=== PATIENT | male | born 1970 | race African-American/Black ===

== ENCOUNTER 2018-10-17 14:50 | Emergency (ER) | payer SELFPAY ==
[~2018-10-17] VITALS: Ht 167.6 cm; Wt 122.5 kg
[~2018-10-17 14:50] MED LIST: ALBU8.5H6 IH; AMOX500T PO
[2018-10-17 15:03] VITALS: BP 171/97
--- NOTE | 2018-10-17 15:10 | PHYS DOC ---
Past Medical History Past Medical History: Asthma, Kidney Infection Past Surgical History: Other Additional Past Surgical Histo: right rotator cuff repair Alcohol Use: None Drug Use: None Adult General Chief Complaint Chief Complaint: COUGH HPI HPI Patient is a 48 year old male presents to the ED complaining of cough �2 months. States it has been worsening over the last week. Patient has a history of asthma. States he smokes. Patient uses an inhaler in the mornings and an inhaler at nighttime. States he does not have access to a nebulizer. Associated symptoms include sore throat and congestion. Denies chest pain, nausea/vomiting, lower leg swelling, abdominal pain, fever, headache, dizziness or back pain. Review of Systems Review of Systems Constitutional: Denies fever or chills [] Eyes: Denies change in visual acuity, redness, or eye pain [] HENT: Complains of congestion. Denies sore throat [] Respiratory: Complains of cough and shortness of breath [] Cardiovascular: No additional information not addressed in HPI [] GI: Denies abdominal pain, nausea, vomiting, bloody stools or diarrhea [] : Denies dysuria or hematuria [] Musculoskeletal: Denies back pain or joint pain [] Integument: Denies rash or skin lesions [] Neurologic: Denies headache, focal weakness or sensory changes [] All other systems were reviewed and found to be within normal limits, except as documented in this note. Current Medications Current Medications Current Medications Medications (Trade) Dose Ordered Sig/Celeste Start Time Stop Time Status Last Admin Dose Admin Albuterol/ Ipratropium (Duoneb) 3 ml 1X ONCE 10/17/18 16:00 10/17/18 16:01 DC 10/17/18 16:14 3 ML Methylprednisolone Sodium Succinate (SOLU-Medrol 125MG VIAL) 125 mg 1X ONCE 10/17/18 15:15 10/17/18 15:16 DC 10/17/18 15:39 125 MG Allergies Allergies Allergies Coded Allergies Type Severity Reaction Last Updated Verified No Known Drug Allergies 02/21/13 No Physical Exam Physical Exam Constitutional: Well developed, well nourished, no acute distress, non-toxic appearance. [] HENT: Normocephalic, atraumatic, bilateral external ears normal, oropharynx moist, no oral exudates, nose normal. [] Eyes: PERRLA, EOMI, conjunctiva normal, no discharge. [] Neck: Normal range of motion, no tenderness, supple, no stridor. [] Cardiovascular:Heart rate regular rhythm, no murmur [] Lungs & Thorax: Mild wheezing bilaterally. [] Abdomen: Bowel sounds normal, soft, no tenderness, no masses, no pulsatile masses. [] Skin: Warm, dry, no erythema, no rash. [] Back: No tenderness, no CVA tenderness. [] Extremities: No tenderness, no cyanosis, no clubbing, ROM intact, no edema. [] Neurologic: Alert and oriented X 3, normal motor function, normal sensory function, no focal deficits noted. [] Psychologic: Affect normal, judgement normal, mood normal. [] Current Patient Data Vital Signs Vital Signs Date Time Temp Pulse Resp B/P (MAP) Pulse Ox O2 Delivery O2 Flow Rate FiO2 10/17/18 16:14 Room Air 10/17/18 15:21 97 10/17/18 15:03 98.2 82 16 171/97 (121) 98.2 EKG EKG [] Radiology/Procedures Radiology/Procedures []PROCEDURE: CHEST AP ONLY Chest radiograph 10/17/2018 3:08 PM INDICATION: Pneumonia, chronic White cough COMPARISON: None available TECHNIQUE: Frontal view of the chest is provided. FINDINGS: The cardiomediastinal silhouette is within normal limits. There are no pleural effusions. There is no pulmonary vascular congestion. There is no pneumothorax. The lungs are clear. Minimal subsegmental atelectasis at the right lung base. Bronchial wall thickening may reflect bronchitis. No significant osseous abnormality is identified. IMPRESSION: Bronchial wall thickening suggestive of bronchitis. There is suggestion of subsegmental atelectasis at the right lung base. Course & Med Decision Making Course & Med Decision Making Pertinent Labs and Imaging studies reviewed. (See chart for details) []Discussed imaging findings with patient. Patient improved after breathing treatments in the ED. States he is feeling much better. Oxygen saturation is 98% on room air. Patient is not tachycardic or tachypneic. We'll treat with prednisone and proair inhaler outpatient. Discussed symptomatic treatment follow-up with PCP this week. Provided contact information/education. Discussed reasons to return to the ED. Patient understands and agrees with plan. [employer] Disclaimer Dragon Disclaimer This electronic medical record was generated, in whole or in part, using a voice recognition dictation system. Departure Departure Impression: Primary Impression: Acute bronchitis Disposition: 01 HOME, SELF-CARE Condition: IMPROVED Referrals: ENEIDA MAGALLANES (PCP) Patient Instructions: Acute Bronchitis Scripts Albuterol Sulfate (Proair Hfa) 8.5 Gm Hfa.aer.ad 1 PUFF INH PRN Q6HRS PRN for SHORTNESS OF BREATH, #1 INHALER Prov: EDSON SULTANA 10/17/18 Prednisone (PREDNISONE) 50 Mg Tablet 1 TAB PO DAILY for 5 Days, #5 TAB Prov: EDSON SULTANA 10/17/18 Azithromycin (AZITHROMYCIN TABLET) 250 Mg Tablet 1 PKG PO UD, #6 TAB Prov: EDSON SULTANA 10/17/18 EDSON SULTANA Oct 17, 2018 15:10
[2018-10-17] MEDS ORDERED: methylPREDNISolone SOD SUCC PF 125 MG/2 ML VIAL. IM ONE (15:15)
[2018-10-17] MEDS ORDERED: IPRATRPIUM/ALBUTEROL 0.5/2.5MG 3 ML NEBU. NEB ONE ×2 (15:15→16:00)
--- NOTE | 2018-10-17 15:27 | RAD ---
Chest radiograph 10/17/2018 3:08 PM INDICATION: Pneumonia, chronic White cough COMPARISON: None available TECHNIQUE: Frontal view of the chest is provided. FINDINGS: The cardiomediastinal silhouette is within normal limits. There are no pleural effusions. There is no pulmonary vascular congestion. There is no pneumothorax. The lungs are clear. Minimal subsegmental atelectasis at the right lung base. Bronchial wall thickening may reflect bronchitis. No significant osseous abnormality is identified. IMPRESSION: Bronchial wall thickening suggestive of bronchitis. There is suggestion of subsegmental atelectasis at the right lung base. Electronically signed by: Miesha Medley MD (10/17/2018 3:24 PM) [id number]
[2018-10-17] MEDS ORDERED: AZIT250T6 PO (16:19)
[2018-10-17] MEDS ORDERED: PRED50TA PO (16:19)
[2018-10-17] MEDS ORDERED: ALBU2.5V8 INH (16:19)
== END 2018-10-17 16:26 | disposition home or self-care (01) ==
LOC: ER 14:50
DX: J20.9 Acute bronchitis, unspecified (principal); J45.909 Unspecified asthma, uncomplicated; F17.200 Nicotine dependence, unspecified, uncomplicated
CPT/HCPCS: 71045; 94640; 96372; 99284; J2930; J7620

== ENCOUNTER 2019-03-08 12:41 | Emergency (ER) | payer SELFPAY ==
[~2019-03-08] VITALS: Ht 165.1 cm; Wt 117.9 kg
[~2019-03-08 12:41] MED LIST changes: +ALBU2.5V8 INH; +AZIT250T6 PO; +PRED50TA PO
[2019-03-08] MEDS: ASPIRIN 325 MG TABLET PO ONE (13:15)
[2019-03-08 13:20] LABS: BASO # 0.1 x10^3/uL (0.0-0.2); BASO % 1 % (0-3); EOS # 0.2 x10^3/uL (0.0-0.7); EOS % 2 % (0-3); HEMATOCRIT 46.3 % (39.0-53.0); HEMOGLOBIN 15.6 g/dL (13.0-17.5); LYMPH # 1.9 x10^3/uL (1.0-4.8); LYMPH % 18 % (24-48); MEAN CORPUSCULAR HEMOGLOBIN 31 pg (25-35); MEAN CORPUSCULAR HGB CONC 34 g/dL (31-37); MEAN CORPUSCULAR VOLUME 92 fL (79-100); MONO # 0.9 x10^3/uL (0.0-1.1); MONO % 9 % (0-9); NEUT # 7.5 x10^3/uL (1.8-7.7); NEUT % 71 % (31-73); PLATELET COUNT 273 x10^3/uL (140-400); RED BLOOD COUNT 5.01 x10^6/uL (4.30-5.70); RED CELL DISTRIBUTION WIDTH 13.5 % (11.5-14.5); WHITE BLOOD COUNT 10.5 x10^3/uL (4.0-11.0)
[2019-03-08 13:28] LABS: CALCIUM 9.3 mg/dL (8.5-10.1); GFR 97.3; POTASSIUM 4.2 mmol/L (3.5-5.1)
[2019-03-08 13:35] LABS: ALBUMIN 3.7 g/dL (3.4-5.0); TOTAL BILIRUBIN 0.4 mg/dL (0.2-1.0); TOTAL PROTEIN 7.5 g/dL (6.4-8.2)
--- NOTE | 2019-03-08 13:43 | RAD ---
CHEST PA LATERAL History: Chest pain. COMPARISON: 10/17/2018. FINDINGS: Cardiomediastinal silhouettes are not enlarged. No evidence of pneumothorax. No pleural effusion. No consolidating infiltrate. Bones appear grossly intact. The aorta is mildly tortuous and ectatic. This appears similar to prior study. IMPRESSION: No evidence of consolidating infiltrate. Electronically signed by: Arthur Hernandez MD (03/08/2019 1:40 PM) [facility]
[2019-03-08] MEDS: ORPHENADRINE CITRATE 60 MG/2 ML VIAL. IV ONE (14:14)
[2019-03-08] MEDS: IV NORMAL SALINE 1000ML BAG 1,000 ML IV ONE (14:14)
[2019-03-08] MEDS: DEXAMETHASONE SOD PHOS 4 MG/ML VIAL IVP ONE (14:15)
[2019-03-08 15:06] LABS: INFLUENZA A PATIENT NEGATIVE (NEGATIVE); INFLUENZA B PATIENT NEGATIVE (NEGATIVE)
[2019-03-08 15:11] VITALS: BP 154/98
[2019-03-08] MEDS ORDERED: HYDR-3164 PO (15:13)
[2019-03-08] MEDS ORDERED: ORPH100T PO (15:13)
[2019-03-08] MEDS ORDERED: PRED20TA PO (15:13)
[2019-03-08] MEDS ORDERED: ALBU2.5V8 IH (15:13)
--- NOTE | 2019-03-08 15:13 | PHYS DOC ---
Past Medical History Past Medical History: Asthma, Kidney Infection Past Surgical History: Other Additional Past Surgical Histo: right rotator cuff repair Smoking: Cigarettes Alcohol Use: Occasionally Drug Use: Marijuana Adult General Chief Complaint Chief Complaint: CHEST PAIN HPI HPI Patient is a 48 year old male with Tob use and back arthritis who presents with dull chest pain. His arms experienced some numbness and tingling and then radiates to the left chest about 2 days ago. Yesterday he also began to feel some left neck tightness. Denies any trauma to the area. Pt endorses having some URI symptoms last week. Nothing makes it worse or better. Denies any SOB, pa lpitation, N/V, recent travel or sick contact. Review of Systems Review of Systems Constitutional: Denies fever or chills Eyes: Denies redness or eye pain HENT: Denies nasal congestion or sore throat Respiratory: Positive cough. Denies shortness of breath Cardiovascular: Positive chest pain. No palpitations GI: Denies abdominal pain, nausea, or vomiting : Denies dysuria or hematuria. Musculoskeletal: Denies back pain or joint pain Integument: Denies rash or skin lesions Neurologic: Denies headache, focal weakness or sensory changes Complete systems were reviewed and found to be within normal limits, except as documented in this note. Current Medications Current Medications Current Medications Medications (Trade) Dose Ordered Sig/Celeste Start Time Stop Time Status Last Admin Dose Admin Aspirin (Blaine Aspirin) 325 mg 1X ONCE 03/08/19 13:15 03/08/19 13:16 DC 03/08/19 13:15 325 MG Dexamethasone Sodium Phosphate (Decadron) 10 mg 1X ONCE 03/08/19 13:15 03/08/19 13:16 DC 03/08/19 14:15 10 MG Orphenadrine Citrate (Norflex) 60 mg 1X ONCE 03/08/19 13:15 03/08/19 13:16 DC 03/08/19 14:14 60 MG Sodium Chloride 1,000 ml @ 1,000 mls/hr 1X ONCE 03/08/19 13:15 03/08/19 14:14 DC 03/08/19 14:14 1,000 MLS/HR Allergies Allergies Allergies Coded Allergies Type Severity Reaction Last Updated Verified No Known Drug Allergies 02/21/13 No Physical Exam Physical Exam Constitutional: Well developed, well nourished, no acute distress, non-toxic appearance. [] HENT: Normocephalic, atraumatic, bilateral external ears normal, oropharynx mo ist, no oral exudates, nose normal. [] Eyes: PERRLA, EOMI, conjunctiva normal, no discharge. [] Neck: Normal range of motion, no tenderness, supple, no stridor. [] Cardiovascular:Heart rate regular rhythm, no murmur [] Lungs & Thorax: Bilateral breath sounds clear to auscultation [] Abdomen: Bowel sounds normal, soft, no tenderness, no masses, no pulsatile masses. [] Skin: Warm, dry, no erythema, no rash. [] Back: No tenderness, no CVA tenderness. [] Extremities: No tenderness, no cyanosis, no clubbing, ROM intact, no edema. [] Neurologic: Alert and oriented X 3, normal motor function, normal sensory function, no focal deficits noted. [] Psychologic: Affect normal, judgement normal, mood normal. [] Current Patient Data Vital Signs Vital Signs Date Time Temp Pulse Resp B/P (MAP) Pulse Ox O2 Delivery O2 Flow Rate FiO2 03/08/19 12:47 98.3 97 16 155/97 (116) 98 Room Air 98.3 Lab Values Laboratory Tests Test 03/08/19 12:55 03/08/19 14:32 White Blood Count 10.5 x10^3/uL (4.0-11.0) Red Blood Count 5.01 x10^6/uL (4.30-5.70) Hemoglobin 15.6 g/dL (13.0-17.5) Hematocrit 46.3 % (39.0-53.0) Mean Corpuscular Volume 92 fL (79-100) Mean Corpuscular Hemoglobin 31 pg (25-35) Mean Corpuscular Hemoglobin Concent 34 g/dL (31-37) Red Cell Distribution Width 13.5 % (11.5-14.5) Platelet Count 273 x10^3/uL (140-400) Neutrophils (%) (Auto) 71 % (31-73) Lymphocytes (%) (Auto) 18 % (24-48) L Monocytes (%) (Auto) 9 % (0-9) Eosinophils (%) (Auto) 2 % (0-3) Basophils (%) (Auto) 1 % (0-3) Neutrophils # (Auto) 7.5 x10^3/uL (1.8-7.7) Lymphocytes # (Auto) 1.9 x10^3/uL (1.0-4.8) Monocytes # (Auto) 0.9 x10^3/uL (0.0-1.1) Eosinophils # (Auto) 0.2 x10^3/uL (0.0-0.7) Basophils # (Auto) 0.1 x10^3/uL (0.0-0.2) Sodium Level 139 mmol/L (136-145) Potassium Level 4.2 mmol/L (3.5-5.1) Chloride Level 105 mmol/L (98-107) Carbon Dioxide Level 29 mmol/L (21-32) Anion Gap 5 (6-14) L Blood Urea Nitrogen 10 mg/dL (8-26) Creatinine 1.0 mg/dL (0.7-1.3) Estimated GFR (Cockcroft-Gault) 97.3 BUN/Creatinine Ratio 10 (6-20) Glucose Level 93 mg/dL (70-99) Calcium Level 9.3 mg/dL (8.5-10.1) Magnesium Level 2.0 mg/dL (1.8-2.4) Total Bilirubin 0.4 mg/dL (0.2-1.0) Aspartate Amino Transferase (AST) 21 U/L (15-37) Alanine Aminotransferase (ALT) 31 U/L (16-63) Alkaline Phosphatase 49 U/L (46-116) Creatine Kinase 341 U/L (39-308) H Creatine Kinase MB (Mass) 5.3 ng/mL (0.0-3.6) H Creatine Kinase MB Relative Index 1.6 % (0-4) Troponin I Quantitative < 0.017 ng/mL (0.000-0.055) UB-Wwo-O-Type Natriuretic Peptide 76 pg/mL (0-124) Total Protein 7.5 g/dL (6.4-8.2) Albumin 3.7 g/dL (3.4-5.0) Albumin/Globulin Ratio 1.0 (1.0-1.7) Lipase 64 U/L (73-393) L Influenza Type A Antigen Negative (NEGATIVE) Influenza Type B Antigen Negative (NEGATIVE) Laboratory Tests 03/08/19 12:55 Laboratory Tests 03/08/19 12:55 EKG EKG 12:48:16 Sinus rhythm, incomplete RBBB. no ST elevation. Radiology/Procedures Radiology/Procedures [] Course & Med Decision Making Course & Med Decision Making Pertinent Labs and Imaging studies reviewed. (See chart for details) Patient is a 48 year old male with Tob use and back arthritis who presents with chest pain. DDX: bronchitis, PNA, ACS, cervical radiculopathy, flu. Labs were unremarkable, negative for flu. CXR shows no acute process. EKG was normal. Will most likely bronchitis and cervical radiculopathy. Will discharge with muscle relaxer, steroid and pain meds. Discussed plan with pts, discharged with return precaution and follow up. Dragon Disclaimer Dragon Disclaimer This electronic medical record was generated, in whole or in part, using a voice recognition dictation system. Departure Departure Impression: Primary Impression: Cervical radicular pain Additional Impression: Bronchitis Disposition: 01 HOME, SELF-CARE Condition: STABLE Referrals: NO PCP (PCP) CECY GARVEY MD Patient Instructions: Acute Bronchitis, [id number], Cervical Radiculopathy, [id number] Scripts Hydrocodone/Apap 5-325 (NORCO 5-325 TABLET) 1 Each Tablet 0.5-1 TAB PO PRN Q6HRS PRN for PAIN, #10 TAB 0 Refills Prov: URBAN MOHAN DO 03/08/19 Orphenadrine Citrate (ORPHENADRINE CITRATE) 100 Mg Tablet.er 100 MG PO BID PRN for MUSCLE PAIN, #14 TAB Prov: URBAN MOHAN DO 03/08/19 Albuterol Sulfate (PROAIR HFA INHALER) 8.5 Gm Hfa.aer.ad 2 PUFF IH PRN Q4-6HRS PRN for wheezing for 21 Days, #1 INHALER 0 Refills Prov: URBAN MOHAN DO 03/08/19 Prednisone (PREDNISONE) 20 Mg Tablet 2 TAB PO DAILY, #8 TAB Start this prescription tomorrow, 03/09/19 Prov: URBAN MOHAN DO 03/08/19 The HEART Score for CP Pts HEART Score for Chest Pain: HEART Score for Chest Pain Response (Comments) Value History Slighlty/Non-Suspicious 0 ECG Nonspecific Repolarizatio 1 Age >45 - < 65 1 Risk Factors 1 or 2 Risk Factors 1 Troponin < Normal Limit 0 Total 3 Risk Factors: Risk Factors: DM, Current or recent (<one month) smoker, HTN, HLP, family history of CAD, obesity. Risk Scores: Score 0 - 3: 2.5% MACE over next 6 weeks - Discharge Home Score 4 - 6: 20.3% MACE over next 6 weeks - Admit for Clinical Observation Score 7 - 10: 72.7% MACE over next 6 weeks - Early Invasive Strategies Problem Qualifiers URBAN MOHAN DO Mar 08, 2019 15:13
--- NOTE | 2019-03-09 06:02 | EKG ---
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
== END 2019-03-08 15:20 | disposition home or self-care (01) ==
LOC: ER 12:41
DX: M54.12 Radiculopathy, cervical region (principal); J40 Bronchitis, not specified as acute or chronic; R07.89 Other chest pain; J45.909 Unspecified asthma, uncomplicated; F12.90 Cannabis use, unspecified, uncomplicated; F17.210 Nicotine dependence, cigarettes, uncomplicated; Z79.82 Long term (current) use of aspirin; Z87.448 Personal history of other diseases of urinary system; Z98.890 Other specified postprocedural states
CPT/HCPCS: 36415; 71046; 80053; 82553; 83690; 83735; 83880; 84484; 85025; 87804; 93005; 96374; 96375; 99285; J1100; J2360; J7030

== ENCOUNTER → 2019-09-18 | Outpatient (CLI) | payer BC ==
[~2019-09-18] MED LIST changes: +ALBU2.5V8 IH; +HYDR-3164 PO; +ORPH100T PO; +PRED20TA PO
--- NOTE | 2019-09-18 16:45 | KCIC ---
4 views the cervical spine without comparison for neck pain. FINDINGS: There is straightening of the normal cervical lordosis. No fracture or acute osseous abnormality is identified. Intervertebral disc spaces are well-maintained. Prevertebral soft tissues are grossly unremarkable. Incidentally noted is some calcification of the right lateral neck possibly representing carotid artery calcification. Clinical correlation consideration for carotid artery duplex ultrasound study in this young patient is recommended. IMPRESSION: 1. Straightening of normal cervical lordosis with no acute osseous or alignment abnormality. 2. Right neck calcification concerning for carotid artery atherosclerosis. Correlate clinically and consider further evaluation with duplex ultrasound study study if warranted. Electronically signed by: Surya Valladares MD (09/18/2019 4:42 PM) [id number]
--- NOTE | 2019-09-18 16:47 | KCIC ---
5 views lumbar spine without comparison for back pain. FINDINGS: There is grade 1 anterolisthesis of L5 on S1, with moderate narrowing of this disc space. Remaining intervertebral disc spaces are well-maintained. Bridging anterior osteophytes are seen at L2-3 and L3-4. Facet arthrosis is present lower lumbar levels. Difficult to tell from the oblique radiographs whether pars defects are present, however there are suspected. IMPRESSION: 1. Multilevel degenerative disc disease, most notable at L5-S1. 2. Grade 1 anterolisthesis of L5 on S1. Bilateral pars defects are suspected though not definitively depicted. Electronically signed by: Surya Valladares MD (09/18/2019 4:44 PM) [id number]
== END | disposition home or self-care (01) ==
LOC: KCIC 12:35
PROVIDERS: ATTEND Family Medicine
DX: M43.17 Spondylolisthesis, lumbosacral region (principal); M40.50 Lordosis, unspecified, site unspecified; M51.37 Other intervertebral disc degeneration, lumbosacral region; M25.78 Osteophyte, vertebrae; I65.29 Occlusion and stenosis of unspecified carotid artery; M54.2 Cervicalgia
CPT/HCPCS: 72040; 72110

== ENCOUNTER → 2019-10-05 | Outpatient (CLI) | payer BC ==
--- NOTE | 2019-10-05 08:05 | RAD ---
EXAM: Carotid Doppler sonogram. HISTORY: Carotid atherosclerosis. TECHNIQUE: Gonzalez scale and color Doppler sonographic evaluation of the neck with spectral waveform analysis was performed and static images are submitted for review. FINDINGS: There is mild bilateral common carotid artery intimal thickening. The peak systolic velocity within the right common carotid artery is 98 cm/sec. The peak systolic velocity within the right internal carotid artery is 73 cm/sec and the end diastolic velocity within the right internal carotid artery is 31 cm/sec. The right ICA/CCA ratio is 0.74. The peak systolic velocity within the left common carotid artery is 94 cm/sec. The peak systolic velocity within the left internal carotid artery is 74 cm/sec and the end diastolic velocity within the left internal carotid artery is 31 cm/sec. The left ICA/CCA ratio is 0.79. There is normal antegrade flow within both vertebral arteries. IMPRESSION: No Doppler evidence of hemodynamically significant stenosis. PQRS Compliance Statement - Stenosis calculations for CT, MR and conventional angiography are based upon measurement of the distal ICA diameter in accordance with the NASCET methodology. Stenosis calculations for carotid ultrasound studies are derived from validated velocity criteria which are known to correlate with the NASCET methodology. Electronically signed by: Cheryle Wilson MD (10/05/2019 8:02 AM) [id number]
== END | disposition home or self-care (01) ==
LOC: US 06:48
PROVIDERS: ATTEND Family Medicine
DX: I65.23 Occlusion and stenosis of bilateral carotid arteries (principal)
CPT/HCPCS: 93880

== ENCOUNTER → 2020-01-04 | Outpatient (CLI) | payer BC ==
--- NOTE | 2020-01-04 12:54 | KCIC ---
5 views of the lumbar spine 01/04/2020 INDICATION: Low back pain. Bilateral pars defects. Bilateral leg pain. COMPARISON STUDY: Lumbar spine radiographs September 18, 2019. Discussion: No evidence of acute fractures identified. Vertebral body heights are maintained. There is disc space narrowing at L5-S1 level. There is grade 1 anterolisthesis of L5 on S1 which appears to be secondary to bilateral pars interarticularis defects (bilateral spondylolysis). Associated endplate sclerosis is seen. Oblique views are somewhat limited though some degree of neural foraminal compromise could be present. A component of spinal stenosis is likely given the appearance. The overall radiographic appearance is similar to comparison radiographs. IMPRESSION: Similar degenerative changes of the lumbar spine most prominent at the L5-S1 level, where there is grade 1 anterolisthesis of L5 on S1, secondary to bilateral spondylolysis. Consider further characterization with MRI as clinically indicated. Electronically signed by: Tristian Bal MD (01/04/2020 12:51 PM) [id number]
== END ==
LOC: KCIC 10:41
PROVIDERS: ATTEND Family Medicine
DX: M47.817 Spondylosis without myelopathy or radiculopathy, lumbosacral region (principal); M48.07 Spinal stenosis, lumbosacral region; M43.17 Spondylolisthesis, lumbosacral region; G89.29 Other chronic pain; M79.606 Pain in leg, unspecified
CPT/HCPCS: 72110